=== PATIENT | female | born 1950 | race Caucasian/White ===

== ENCOUNTER 2020-11-03 22:06 | Emergency (ER) | payer OTHER ==
[~2020-11-03] VITALS: Ht 165.1 cm; Wt 68.0 kg
[~2020-11-03 22:06] MED LIST: KETO10TA2 PO
[2020-11-03] MEDS ORDERED: PROTONIX20 MG (22:27)
[2020-11-03] MEDS ORDERED: NAPROXEN500 MG (22:27)
[2020-11-04] MEDS ORDERED: PEPCID AC20 MG PO (03:00)
[2020-11-04] MEDS ORDERED: NAPROXEN375 MG PO (03:00)
== END 2020-11-04 03:07 | disposition home or self-care (01) ==
LOC: ER 22:06
DX: S60.221A Contusion of right hand, initial encounter (principal); S90.02XA Contusion of left ankle, initial encounter; W01.198A Fall on same level from slipping, tripping and stumbling with subsequent striking against other object, initial encounter; Y93.89 Activity, other specified; Y92.018 Other place in single-family (private) house as the place of occurrence of the external cause; Y99.8 Other external cause status